=== PATIENT | female | born 1935 | race Caucasian/White ===

== ENCOUNTER → 2017-01-14 | Outpatient (CLI) | payer MEDICARE, BC ==
--- NOTE | 2017-01-14 10:47 | RADRPT ---
PROCEDURE: XR Knee. CLINICAL INDICATION: Knee pain TECHNIQUE: AP, lateral, sunrise and oblique views of the right knee are available for review. COMPARISON: None available FINDINGS: The osseous structures, articular spaces, and surrounding soft tissues of the right knee are all unr emarkable. No acute fracture or dislocation is seen. No radiopaque foreign body is identified. Ali gnment is anatomic. There is no significant joint effusion. IMPRESSION: 1. Unremarkable right knee x-ray series. 2. No acute fracture or dislocation is seen. RPTAT: GG .Son Melvin MD, Date Time Electronically viewed and signed by .Son Melvin MD, on 01/14/2017 10:47 .L/
== END | disposition home or self-care (01) ==
LOC: HKI 10:06
PROVIDERS: ATTEND Orthopaedic Surgery
DX: M25.561 Pain in right knee (principal); M70.41 Prepatellar bursitis, right knee
CPT/HCPCS: 20610; 73564; G0463

== ENCOUNTER → 2017-01-24 | Outpatient (CLI) | END | disposition home or self-care (01) | DX: M70.41 Prepatellar bursitis, right knee (principal) | CPT/HCPCS: 20610; G0463 ==